=== PATIENT | male | born 1950 | race Caucasian/White ===

== ENCOUNTER 2021-04-14 15:32 | Emergency (ER) | payer MEDICARE ==
[2021-04-14 16:22] VITALS: O2SAT 96
--- NOTE | 2021-04-14 16:29 | ERPHSYRPT ---
- History of Present Illness Time Seen by Provider: 04/14/21 15:45 Source: patient Exam Limitations: no limitations Patient Subjective Stated Complaint: UTI-Fall Triage Nursing Assessment: Patient brought into ED via EMS and transferred and walked to bed per self. Mirtan A+O x3. Patient's skin pink, warm and dry. Patient states he currently is being treated for a UTI with Bactrim and has had 5 doses. Patient states today he got up from the couch and fell and was unable to get up. Patient states he was uninjuired. Patient is concerned with why he is so weak and wants to be checked out. Patient denies any urinary symptoms at this time. Physician History: Patient is a 70-year-old male presents to our ED via EMS for evaluation of a fall. Patient was getting off of his couch when he lost his balance and fell. Patient could not get off the floor. Patient was on the floor for a few minutes. Patient crawled to a phone and called her sister. His sister came to the house and could not get him off the floor. They called 911. Patient is currently being treated for urinary tract infection. Patient is on Bactrim. Patient became concerned because he wants to be sure that there is no underlying medical problem causing his fall. Patient lives alone and wants to make sure things are okay per patient. Patient was ambulatory from his house to the ambulance prior to arrival. He currently feels well. Patient states "I just lost my balance". No LOC. No BHT. No neck pain. Cervical spine cleared clinically. Patient denies any musculoskeletal pain. The fall was not associated with any chest pain or shortness of breath. No numbness tingling or weakness. Patient feels fine at this time. He voices no other complaints or concerns at this time. Patient states he has no urinary symptomology. Timing/Duration: today Severity: mild Modifying Factors: Improves With: nothing Associated Symptoms: denies symptoms Allergies/Adverse Reactions: benzoin Allergy (Verified 04/14/21 15:35) Hx Influenza Vaccination/Date Given: No Hx Pneumococcal Vaccination/Date Given: Yes Immunizations Up to Date: Yes Travel Risk - International Travel Have you traveled outside of the country in past 3 weeks: No - Coronavirus Screening Are you exhibiting any of the following symptoms?: No Close contact with a COVID-19 positive Pt in past 14-21 Days: No - Vaccine Status Have you recieved a Covid-19 vaccination: Yes Clinical Review Nurse: Moderna - Vaccination Dates Date of 2cond Vaccination (if applicable): 07/29/2020 Comment: Booster March 18 2021 - Review of Systems Constitutional: No Symptoms, No Fever, No Chills Eyes: No Symptoms Ears, Nose, & Throat: No Symptoms Respiratory: No Symptoms, No Cough, No Dyspnea Cardiac: No Symptoms, No Chest Pain, No Edema, No Syncope Abdominal/Gastrointestinal: No Symptoms, No Abdominal Pain, No Nausea, No Vomiting, No Diarrhea Genitourinary Symptoms: No Symptoms, No Dysuria Musculoskeletal: No Symptoms, No Back Pain, No Neck Pain Skin: No Symptoms, No Rash Neurological: No Symptoms, No Dizziness, No Focal Weakness, No Sensory Changes Psychological: No Symptoms Endocrine: No Symptoms Hematologic/Lymphatic: No Symptoms Immunological/Allergic: No Symptoms All Other Systems: Reviewed and Negative - Past Medical History Pertinent Past Medical History: Yes Neurological History: No Pertinent History ENT History: No Pertinent History Cardiac History: Hypertension Respiratory History: Sleep Apnea Endocrine Medical History: Diabetes Type II Musculoskeletal History: No Pertinent History GI Medical History: No Pertinent History History: No Pertinent History Psycho-Social History: No Pertinent History Male Reproductive Disorders: No Pertinent History - Past Surgical History Past Surgical History: Yes Neuro Surgical History: No Pertinent History Cardiac: No Pertinent History Respiratory: No Pertinent History Gastrointestinal: No Pertinent History Genitourinary: No Pertinent History Musculoskeletal: Orthopedic Surgery Male Surgical History: No Pertinent History Other Surgical History: rotator cuff left shoulder - Social History Smoking Status: Never smoker Exposure to second hand smoke: No Drug Use: none Patient Lives Alone: Yes - Nursing Vital Signs Nursing Vital Signs: Initial Vital Signs Temperature 98.1 F 04/14/21 15:39 Pulse Rate 79 04/14/21 15:39 Respiratory Rate 18 04/14/21 15:39 Blood Pressure 114/67 04/14/21 15:39 O2 Sat by Pulse Oximetry 98 04/14/21 15:39 Pain Scale Pain Intensity 0 - Physical Exam General Appearance: no apparent distress, alert Eye Exam: PERRL/EOMI, eyes nml inspection Ears, Nose, Throat Exam: normal ENT inspection, TMs normal, pharynx normal, moist mucous membranes Neck Exam: normal inspection, non-tender, supple, full range of motion Respiratory Exam: normal breath sounds, lungs clear, airway intact, No respiratory distress Cardiovascular Exam: regular rate/rhythm, normal heart sounds, normal peripheral pulses Gastrointestinal/Abdomen Exam: soft, normal bowel sounds, No tenderness, No mass Back Exam: normal inspection, normal range of motion, No CVA tenderness, No vert ebral tenderness Extremity Exam: normal inspection, normal range of motion, pelvis stable Neurologic Exam: alert, oriented x 3, cooperative, normal mood/affect, nml cerebellar function, nml station & gait, sensation nml, No motor deficits Skin Exam: normal color, warm, dry, No rash Lymphatic Exam: No adenopathy SpO2 Interpretation: normal SpO2: 96 O2 Delivery: Room Air - Course Nursing assessment & vital signs reviewed: Yes Ordered Tests: Active Orders 24 hr Category Date Time Status Nuclear Medicine Technician STAT Care 04/14/21 16:12 Active IV Insertion STAT Care 04/14/21 16:11 Active Pulse Oximetry (ED) STAT Care 04/14/21 16:11 Active CBC W DIFF Stat Lab 04/14/21 16:48 Completed CMP Stat Lab 04/14/21 16:48 Completed TROPONIN Q3H Lab 04/14/21 16:48 Received TROPONIN Q3H Lab 04/14/21 19:15 Ordered TROPONIN Q3H Lab 04/14/21 22:15 Ordered TROPONIN Q3H Lab 04/15/21 01:15 Ordered TROPONIN Q3H Lab 04/15/21 04:15 Ordered UA W/RFX UR CULTURE Stat Lab 04/14/21 16:46 Completed Lab/Rad Data: Laboratory Result Diagrams 04/14/21 16:48 04/14/21 16:48 Laboratory Results 04/14/21 04/14/21 04/14/21 Range/Units 16:48 16:48 16:46 WBC 7.1 (4.0-10.5) K/mm3 RBC 4.59 (4.1-5.6) M/mm3 Hgb 14.5 (12.5-18.0) gm/dl Hct 44.3 (42-50) % MCV 96.5 (78-100) fl MCH 31.6 (26-32) pg MCHC 32.7 (32-36) g/dl RDW 13.6 (11.5-14.0) % Plt Count 245 (150-450) K/mm3 MPV 10.4 (7.5-11.0) fl Gran % 88.5 H (36.0-66.0) % Eos # (Auto) 0 (0-0.5) Absolute Lymphs (auto) 0.52 L (1.0-4.6) Absolute Monos (auto) 0.28 (0.0-1.3) Lymphocytes % 7.3 L (24.0-44.0) % Monocytes % 3.9 (0.0-12.0) % Eosinophils % 0.0 (0.00-5.0) % Basophils % 0.3 (0.0-0.4) % Absolute Granulocytes 6.30 (1.4-6.9) Basophils # 0.02 (0-0.4) Sodium 136 L (137-145) mmol/L Potassium 3.8 (3.5-5.1) mmol/L Chloride 105 (98-107) mmol/L Carbon Dioxide 20 L (22-30) mmol/L Anion Gap 15.1 H (5-15) MEQ/L BUN 12 (9-20) mg/dL Creatinine 0.87 (0.66-1.25) mg/dL Estimated GFR > 60.0 ML/MIN Glucose 173 H (74-106) mg/dL Calcium 9.0 (8.4-10.2) mg/dL Total Bilirubin 0.70 (0.2-1.3) mg/dL AST 39 (17-59) U/L ALT 34 (0-50) U/L Alkaline Phosphatase 65 (38-126) U/L Serum Total Protein 6.5 (6.3-8.2) g/dL Albumin 3.8 (3.5-5.0) g/dL Urine Color YELLOW (YELLOW) Urine Appearance CLEAR (CLEAR) Urine pH 5.0 (5-6) Ur Specific [place] 1.032 (1.005-1.025) Urine Protein NEGATIVE (Negative) Urine Ketones TRACE (NEGATIVE) Urine Blood NEGATIVE (0-5) Prakash/ul Urine Nitrite NEGATIVE (NEGATIVE) Urine Bilirubin NEGATIVE (NEGATIVE) Urine Urobilinogen NEGATIVE (0-1) mg/dL Ur Leukocyte Esterase NEGATIVE (NEGATIVE) Urine WBC (Auto) NONE (0-5) /HPF Urine RBC (Auto) NONE (0-2) /HPF U Epithel Cells (Auto) NONE (FEW) /HPF Urine Bacteria (Auto) NONE (NEGATIVE) /HPF Urine Culture Reflexed NO (NO) Urine Glucose >=500 (NEGATIVE) mg/dL - Progress Progress: improved Progress Note: Patient reassessed. He feels well. Patient denies pain. Work-up essentially nonremarkable. UA suggestive that urinary tract infection is resolving with Bactrim. Patient states he is ready for discharge. He voices no other complaints or concerns at this time. No chest pain or shortness of breath. Patient ambulated in our ED. Gait was normal and steady. Neurologic status is within normal limits. No focal or lateralizing symptoms. Patient agrees to follow-up with his primary care doctor within 48 hours for evaluation. Portions of this note were created with voice recognition technology. There may be grammatical, spelling, punctuation or sound alike errors 04/14/21 17:12 Counseled pt/family regarding: lab results, diagnosis, need for follow-up, rad results - Departure Departure Disposition: Home Clinical Impression: Fall Condition: Stable Critical Care Time: No Referrals: VIRGINIE GONZALEZ [Primary Care Provider] - Follow up/PCP as directed Additional Instructions: Discharge/Care Plan FELY FARMER was seen on 04/14/21 in the Emergency Room. The patient was counseled regarding Diagnosis,Lab results, Imaging studies, need for follow up and when to return to the Emergency Room. Prescriptions given: Discharge Note I have spoken with the patient and/or caregivers. I have explained the patient's condition, diagnosis and treatment plan based on the information available to me at this time. I have answered the patient's and/or caregiver's questions and addressed any concerns. The patient and/or caregivers have as good understanding of the patient's diagnosis, condition and treatment plan as can be expected at this point. The vital signs have been stable. The patient's condition is stable and appropriate for discharge from the emergency department. The patient will pursue further outpatient evaluation with the primary care physician or other designated or consulting physician as outlined in the discharge instructions. The patient and/or caregivers are agreeable to this plan of care and follow-up instructions have been explained in detail. The patient and/or caregivers have received these instruction. The patient/and or caregivers are aware that any significant change in condition or worsening of symptoms should prompt an immediate return to this or the closest emergency department or call 911.
[2021-04-14 16:51] LABS: Basophil (Absolute #) 0.02 (0-0.4); Eosinophil (Absolute #) 0 (0-0.5); Hematocrit 44.3 % (42-50); Hemoglobin 14.5 gm/dl (12.5-18.0); Lymphocyte (Absolute #) 0.52 (1.0-4.6); Lymphocytes % 7.3 % (24.0-44.0); Mean Cell Volume 96.5 fl (78-100); Mean Corpuscular Hemoglobin 31.6 pg (26-32); Mean Corpuscular Hgb Concent. 32.7 g/dl (32-36); Mean Platelet Volume 10.4 fl (7.5-11.0); Monocyte (Absolute #) 0.28 (0.0-1.3); Monocytes % 3.9 % (0.0-12.0); Neutrophil % 88.5 % (36.0-66.0); Platelet Count 245 K/mm3 (150-450); Red Blood Count 4.59 M/mm3 (4.1-5.6); Red Cell Distribution Width 13.6 % (11.5-14.0); White Blood Count 7.1 K/mm3 (4.0-10.5)
[2021-04-14 16:54] LABS: Appearance CLEAR (CLEAR); Bilirubin NEGATIVE (NEGATIVE); Blood NEGATIVE Ery/ul (0-5); Glucose >=500 mg/dL (NEGATIVE); Ketones TRACE (NEGATIVE); Leukocyte Esterase NEGATIVE (NEGATIVE); Nitrite NEGATIVE (NEGATIVE); Protein,Urine Dip NEGATIVE (Negative); Specific Gravity 1.032 (1.005-1.025); Urobilinogen NEGATIVE mg/dL (0-1)
[2021-04-14 17:02] LABS: ALBUMIN 3.8 g/dL (3.5-5.0); ALKALINE PHOSPHATASE 65 U/L (38-126); ANION GAP 15.1 MEQ/L (5-15); BLOOD UREA NITROGEN 12 mg/dL (9-20); CHLORIDE 105 mmol/L (98-107); Carbon Dioxide 20 mmol/L (22-30); Creatinine 1 0.87 mg/dL (0.66-1.25); EST GLOMERULAR FILTRATION RATE > 60.0 ML/MIN; Glucose 173 mg/dL (74-106); Potassium 3.8 mmol/L (3.5-5.1); SGOT/AST 39 U/L (17-59); SGPT/ALT 34 U/L (0-50); SODIUM 136 mmol/L (137-145); Total Protein 6.5 g/dL (6.3-8.2)
[2021-04-14 17:16] VITALS: BP 108/71; PULSE 76
[2021-04-15 03:40] LABS: Slide Review 1 YES
== END 2021-04-14 17:19 | disposition home or self-care (01) ==
LOC: ED 15:32
DX: R53.1 Weakness (principal); W01.0XXA Fall on same level from slipping, tripping and stumbling without subsequent striking against object, initial encounter; Y92.009 Unspecified place in unspecified non-institutional (private) residence as the place of occurrence of the external cause; E11.9 Type 2 diabetes mellitus without complications
CPT/HCPCS: 36000; 36415; 80053; 81001; 84484; 85025; 93041; 94760; 99284

== ENCOUNTER 2022-08-23 13:15 | Emergency (ER) | payer MEDICARE ==
[2022-08-23] MEDS ORDERED: Zofran 4 MG/2 ML VIAL IV ONE (13:40)
[2022-08-23] MEDS ORDERED: MORPHINE SULFATE 4 MG INJ IV ONE (13:40)
[2022-08-23] MEDS ORDERED: Sodium Chloride 0.9% 500 ML 500 ML IV ONE ×2 (13:41→13:47)
--- NOTE | 2022-08-23 13:44 | ERPHSYRPT ---
- History of Present Illness Time Seen by Provider: 08/23/22 13:25 Historian: patient Exam Limitations: no limitations Physician History: 71 years old male with history of hypertension, hyperlipidemia, diabetes mellitus presented in the ER with chief complaint of right flank/right lower quadrant pain for the last 2 days, moderate intensity sharp in nature, aggravated with palpation/movement without associated nausea vomiting or diarrhea. Patient does have bowel movements yesterday. Does report some increased urinary frequency but no urgency or hesitancy. No fever or chills reported. Timing/Duration: day(s) (2), gradual onset, worse Activities at Onset: rest Quality: sharpness Abdominal Pain Onset Location: RUQ, RLQ Pain Radiation: no radiation Severity of Pain-Max: moderate Severity of Pain-Current: moderate Modifying Factors: Worsens With: movement, palpation Associated Symptoms: denies symptoms Previous symptoms: no prior history Allergies/Adverse Reactions: benzoin Allergy (Verified 08/23/22 13:50) Home Medications: Atorvastatin Calcium 40 mg PO DAILY 08/23/22 [History] Metformin HCl 500 mg [Glucophage 500 MG] 500 mg PO BIDWM 08/23/22 [History] Semaglutide [Ozempic] 1 mg SQ WEEKLY 08/23/22 [History] carvediloL [Carvedilol] 6.25 mg PO BID 08/23/22 [History] lisinopriL [Zestril] 5 mg PO DAILY 08/23/22 [History] Hx Influenza Vaccination/Date Given: No Hx Pneumococcal Vaccination/Date Given: Yes Travel Risk - Vaccine Status Have you recieved a Covid-19 vaccination: 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[employer] Line: Moderna - Vaccination Dates Date of 2cond Vaccination (if applicable): 07/29/2020 Comment: Booster March 18 2021 - Review of Systems Constitutional: No Symptoms Ears, Nose, & Throat: No Symptoms Respiratory: No Symptoms Cardiac: No Symptoms Abdominal/Gastrointestinal: Abdominal Pain Genitourinary Symptoms: No Symptoms Musculoskeletal: No Symptoms Skin: No Symptoms Neurological: No Symptoms Endocrine: No Symptoms Hematologic/Lymphatic: No Symptoms Immunological/Allergic: No Symptoms - Past Medical History Pertinent Past Medical History: Yes Neurological History: No Pertinent History ENT History: No Pertinent History Cardiac History: Hypertension Respiratory History: Sleep Apnea Endocrine Medical History: Diabetes Type II Musculoskeletal History: No Pertinent History GI Medical History: No Pertinent History History: No Pertinent History Psycho-Social History: No Pertinent History Male Reproductive Disorders: No Pertinent History - Past Surgical History Past Surgical History: Yes Neuro Surgical History: No Pertinent History Cardiac: No Pertinent History Respiratory: No Pertinent History Gastrointestinal: No Pertinent History Genitourinary: No Pertinent History Musculoskeletal: Orthopedic Surgery Male Surgical History: No Pertinent History Other Surgical History: rotator cuff left shoulder - Social History Smoking Status: Never smoker Exposure to second hand smoke: No Drug Use: none Patient Lives Alone: Yes - Nursing Vital Signs Nursing Vital Signs: Initial Vital Signs Temperature 98.4 F 08/23/22 13:31 Pulse Rate 93 H 08/23/22 13:31 Blood Pressure 155/78 08/23/22 13:31 O2 Sat by Pulse Oximetry 92 L 08/23/22 13:31 Pain Scale Pain Intensity 4 - Physical Exam General Appearance: no apparent distress, alert Eye Exam: PERRL/EOMI Ears, Nose, Throat Exam: normal ENT inspection Neck Exam: normal inspection, supple, full range of motion Respiratory Exam: normal breath sounds, lungs clear Cardiovascular Exam: regular rate/rhythm, normal heart sounds Gastrointestinal/Abdomen Exam: soft, tenderness (Right upper quadrant/flank/right lower quadrant tenderness with guarding with rebound tenderness.), guarding, rebound, No normal bowel sounds Back Exam: normal inspection, normal range of motion Neurologic Exam: alert, oriented x 3, cooperative Skin Exam: normal color SpO2 Interpretation: normal SpO2: 96 O2 Delivery: Room Air Ordered Tests: Active Orders 24 hr Category Date Time Status IV Insertion STAT Care 08/23/22 13:40 Active NPO (ED) STAT Care 08/23/22 13:40 Active ABDOMEN AND PELVIS W/0 CONTRAS [CT] Stat Exams 08/23/22 14:19 Completed CBC W DIFF Stat Lab 08/23/22 13:55 Completed CMP Stat Lab 08/23/22 13:55 Completed LIPASE Stat Lab 08/23/22 13:55 Completed UA W/RFX UR CULTURE Stat Lab 08/23/22 13:49 Completed Medication Summary Generic Name Dose Route Start Last Admin Trade Name Freq PRN Reason Stop Dose Admin Sodium Chloride 1,000 mls @ 125 mls/hr 08/23/22 15:45 08/23/22 15:46 Sodium Chloride 0.9% 1000 Ml IV 09/22/22 15:44 125 mls/hr .Q8H ANGELICA Administration Discontinued Medications Generic Name Dose Route Start Last Admin Trade Name Caren PRN Reason Stop Dose Admin Sodium Chloride 500 mls @ 500 mls/hr 08/23/22 13:41 08/23/22 14:54 Sodium Chloride 0.9% 500 Ml IV 08/23/22 14:40 Infused .Q1H ONE Infusion Sodium Chloride Confirm 08/23/22 13:47 Sodium Chloride 0.9% 500 Ml Administered 08/23/22 13:48 Dose 500 mls @ ud IV .STK-MED ONE Piperacillin Sod/Tazobactam 100 mls @ 200 mls/hr 08/23/22 15:26 08/23/22 15:42 Sod 3.375 gm/ Sodium Chloride IV 08/23/22 15:55 200 mls/hr STAT ONE Administration Sodium Chloride Confirm 08/23/22 15:38 Sodium Chloride 100ml Mini-Bag Plus Administered 08/23/22 15:39 Dose 100 mls @ ud IV .STK-MED ONE Sodium Chloride Confirm 08/23/22 15:43 Sodium Chloride 0.9% 1000 Ml Administered 08/23/22 15:44 Dose 1,000 mls @ ud .ROUTE .STK-MED ONE Morphine Sulfate 4 mg 08/23/22 13:40 08/23/22 13:48 Morphine Sulfate 4 Mg/Ml Injection IV 08/23/22 13:41 4 mg STAT ONE Administration Morphine Sulfate Confirm 08/23/22 13:47 Morphine Sulfate 4 Mg/Ml Injection Administered 08/23/22 13:48 Dose 4 mg .ROUTE .STK-MED ONE Ondansetron HCl 4 mg 08/23/22 13:40 08/23/22 13:49 Ondansetron Hcl 4 Mg/2 Ml Vial IV 08/23/22 13:41 4 mg STAT ONE Administration Ondansetron HCl Confirm 08/23/22 13:47 Ondansetron Hcl 4 Mg/2 Ml Vial Administered 08/23/22 13:48 Dose 4 mg .ROUTE .STK-MED ONE Piperacillin Sod/Tazobactam Sod Confirm 08/23/22 15:38 Piperacillin/Tazobactam Sodium 3.375 Gm Vial Administered 08/23/22 15:39 Dose 3.375 gm IV .STK-MED ONE Lab/Rad Data: Laboratory Result Diagrams 08/23/22 13:55 08/23/22 13:55 Laboratory Results 08/23/22 08/23/22 08/23/22 Range/Units 13:55 13:55 13:49 WBC 15.5 H (4.0-10.5) x10^3/uL RBC 4.14 (4.1-5.6) x10^6/uL Hgb 13.3 (12.5-18.0) g/dL Hct 39.6 L (42-50) % MCV 95.7 (78-100) fL MCH 32.1 H (26-32) pg MCHC 33.6 (32-36) g/dL RDW 12.5 (11.5-14.0) % Plt Count 315 (150-450) x10^3/uL MPV 10.7 (7.5-11.0) fL Gran % 81.4 H (36.0-66.0) % Immature Gran % (Auto) 0.3 (0.00-0.4) % Nucleat RBC Rel Count 0.0 (0.00-0.1) % Eos # (Auto) 0.01 (0-0.5) x10^3/uL Immature Gran # (Auto) 0.05 H (0.00-0.03) x10^3u/L Absolute Lymphs (auto) 1.70 (1.0-4.6) x10^3/uL Absolute Monos (auto) 1.09 (0.0-1.3) x10^3/uL Absolute Nucleated RBC 0.00 (0.00-0.01) x10^3u/L Lymphocytes % 11.0 L (24.0-44.0) % Monocytes % 7.0 (0.0-12.0) % Eosinophils % 0.1 (0.00-5.0) % Basophils % 0.2 (0.0-0.4) % Absolute Granulocytes 12.62 H (1.4-6.9) x10^3/uL Basophils # 0.03 (0-0.4) x10^3/uL Sodium 140 (137-145) mmol/L Potassium 3.4 L (3.5-5.1) mmol/L Chloride 103 (98-107) mmol/L Carbon Dioxide 27 (22-30) mmol/L Anion Gap 13.1 (5-15) MEQ/L BUN 6 L (9-20) mg/dL Creatinine 0.72 (0.66-1.25) mg/dL Estimated GFR > 60.0 ML/MIN Glucose 202 H (74-106) mg/dL Calcium 8.9 (8.4-10.2) mg/dL Total Bilirubin 1.20 (0.2-1.3) mg/dL AST 20 (17-59) U/L ALT 20 (0-50) U/L Alkaline Phosphatase 98 (38-126) U/L Serum Total Protein 7.4 (6.3-8.2) g/dL Albumin 3.9 (3.5-5.0) g/dL Lipase 76 (23-300) U/L Urine Color Dark Yellow (Yellow) Urine Appearance Clear (Clear) Urine pH 5.5 (4.6-8.0) Ur Specific [place] 1.025 (1.005-1.030) Urine Protein 100 A (Negative) Urine Glucose (UA) Negative (Negative) mg/dL Urine Ketones Trace A (Negative) Urine Blood Negative (Negative) Urine Nitrite Negative (Negative) Urine Bilirubin Small A (Negative) Urine Urobilinogen 1.0 A (0.2) mg/dL Ur Leukocyte Esterase Negative (Negative) U Hyaline Cast (Auto) 11-20 (0-2) /LPF Urine Microscopic RBC 0-2 (0-5) /HPF Urine Microscopic WBC 0-2 (0-5) /HPF Ur Epithelial Cells Rare (None Seen) /HPF Urine Bacteria None Seen (None Seen) /HPF Urine Culture Reflexed NO (NO) - Progress Progress Note: 08/23/22 15:36 71-year-old is evaluated for right-sided abdominal pain for the last 2 to 3 days with progressive worsening. Patient has diffuse tenderness on the right side with positive guarding and some rebound tenderness. Is given fluids and symptomatic treatment for pain, on reevaluation feeling much better. Work-up showed white count of 15.5, fairly unremarkable chemistries except for the elevated glucose and patient is diabetic. CT abdomen pelvis showed acute appendicitis with perforation and phlegmon formation. He is started on Zosyn. I have discussed with Dr. Conrad Clemons general surgeon on-call, recommended medical admission, have spoken with primary on-call Dr. Stanley, recommended patient probably needs to be transferred to a higher level of care. Patient's primary care Dr. Epperson is in [place] and I have spoken with him as well and he is agree full with taking care of patient in [facility]. I have called [facility] transfer line, discussed with Luther Li, reviewed history, work-up and patient is accepted for transfer. I have discussed lab work, plan of care and transfer with patient in detail who understand and agrees with it. Discussed with Dr.: Other Counseled pt/family regarding: lab results, diagnosis, need for follow-up, rad results Medical Desision Making - Discussion of managment Care discussed with:: specialist Reviewed:: Test results Agreed on:: Treatment plan - Diagnostic Testing Diagnostic test were ordered, analyzed, and reviewed by me: Yes Radiological Interpretation: Reviewed by me, Teleradiologist Report - Risk of complications The pt has a high risk of morbidity or mortality based on: Need for emergency major surgery, Decision regarding hospitilization or escalation of hosp level of care - Departure Departure Disposition: Transfer Clinical Impression: Acute appendicitis with appendiceal abscess Condition: Stable Critical Care Time: No Referrals: VIRGINIE EPPERSON [Primary Care Provider] - Follow up/PCP as directed
[2022-08-23] MEDS ORDERED: MORPHINE SULFATE 4 MG INJ ONE (13:47)
[2022-08-23] MEDS ORDERED: Zofran 4 MG/2 ML VIAL ONE (13:47)
[2022-08-23 14:05] LABS: Absolute Neutrophil Ct (ANC) 12.62 x10^3/uL (1.4-6.9); BASOPHIL % 0.2 % (0.0-0.4); Basophil (Absolute #) 0.03 x10^3/uL (0-0.4); Eosinophil % 0.1 % (0.00-5.0); Eosinophil (Absolute #) 0.01 x10^3/uL (0-0.5); Hematocrit 39.6 % (42-50); Hemoglobin 13.3 g/dL (12.5-18.0); IMMATURE GRAN # 0.05 x10^3u/L (0.00-0.03); IMMATURE GRAN % 0.3 % (0.00-0.4); Mean Cell Volume 95.7 fL (78-100); Mean Corpuscular Hemoglobin 32.1 pg (26-32); Mean Corpuscular Hgb Concent. 33.6 g/dL (32-36); Mean Platelet Volume 10.7 fL (7.5-11.0); Monocyte (Absolute #) 1.09 x10^3/uL (0.0-1.3); Neutrophil % 81.4 % (36.0-66.0); Platelet Count 315 x10^3/uL (150-450); Red Blood Count 4.14 x10^6/uL (4.1-5.6); Red Cell Distribution Width 12.5 % (11.5-14.0); White Blood Count 15.5 x10^3/uL (4.0-10.5)
[2022-08-23 14:13] LABS: Appearance Clear (Clear); Bacteria None Seen /HPF (None Seen); Bilirubin Small (Negative); Blood Negative (Negative); Epithelial Cells Rare /HPF (None Seen); Glucose, Urine Negative (Negative); Ketones Trace (Negative); Leukocyte Esterase Negative (Negative); Nitrite Negative (Negative); Ph 5.5 (4.6-8.0); Protein,Urine Dip 100 (Negative); RBC 0-2 /HPF (0-5); Specific Gravity 1.025 (1.005-1.030); WBC 0-2 /HPF (0-5)
[2022-08-23 14:24] LABS: ADD URINE CULTURE? NO (NO)
[2022-08-23 14:31] LABS: ALBUMIN 3.9 g/dL (3.5-5.0); ALKALINE PHOSPHATASE 98 U/L (38-126); ANION GAP 13.1 MEQ/L (5-15); BLOOD UREA NITROGEN 6 mg/dL (9-20); CHLORIDE 103 mmol/L (98-107); Calcium 8.9 mg/dL (8.4-10.2); Carbon Dioxide 27 mmol/L (22-30); Creatinine 1 0.72 mg/dL (0.66-1.25); EST GLOMERULAR FILTRATION RATE > 60.0 ML/MIN; Glucose 202 mg/dL (74-106); LIPASE 76 U/L (23-300); Potassium 3.4 mmol/L (3.5-5.1); SGOT/AST 20 U/L (17-59); SGPT/ALT 20 U/L (0-50); SODIUM 140 mmol/L (137-145); Total Protein 7.4 g/dL (6.3-8.2)
[2022-08-23] MEDS ORDERED: PIPERACILLIN/TAZOBACTAM 3.375 GM in Sodium Chloride 100ML MINI-BAG PLUS 100 ML IV ONE (15:26)
--- NOTE | 2022-08-23 15:28 | XRAY ---
CLINICAL HISTORY:Right-sided abdominal pain. COMPARISON:Prior CT from 05/31/2017. TECHNIQUES:Contiguous, multislice, nonenhanced CT scan of the abdomen and pelvis was performed in the axial plane with multiplanar reconstructions. Total DLP-1799.36; CTDI-32.02. FINDINGS: Liver is enlarged in size, measures about 21 cm in craniocaudal axis showing homogeneous attenuation with no obvious focal lesion within the limitations of noncontrast study. No intrahepatic biliary dilatation. Normal-sized portal vein and CBD. Gallbladder shows 18 mm calculus. Pancreas shows multiple calcifications at the head and body probably related to prior pancreatic insult. No pancreatic ductal dilatation or mass lesion seen. Normal-sized spleen showing homogeneous attenuation with no focal mass lesion. No adrenal mass. Both kidneys appear normal in size, shows normal contour and attenuation. Mild perinephric fat stranding seen around both kidneys. Tiny calculus seen in the midpole of right kidney. No hydronephrosis or mass lesion in either kidneys. Fat-containing umbilical hernia noted. Left posterolateral lumbar hernia is also noted. No ascites. No para-aortic lymphadenopathy. Atherosclerotic calcification of the abdominal aorta and iliac vessels. Appendix appear dilated measuring about 14 mm showing significant periappendiceal fat stranding and thickening of the lateroconal fascia with small extraluminal gas seen. [Series 2. image 69]. There is thickening of the wall of cecum and distal ileum at the ileocecal junction showing adjacent fat stranding. Inadequate bladder distension. Normal-sized prostate showing calcific foci within it. Spondylodegenerative changes in the visualized spine. No acute osseous abnormalities or suspicious bony lesion. Visualized sections through lung shows few fibrotic right lung 3-5 mm nodules coronary calcifications no pleural effusion bilaterally. IMPRESSION: CT appearances are suggestive of complicated perforated appendicitis showing significant periappendiceal fat stranding with phlegmon formation and reactive wall thickening of the cecum and distal ileal loop with adjacent colonic fat stranding. Cholelithiasis with no CT evidence of cholecystitis. Tiny right renal calculus. Fat-containing umbilical hernia seen. Left posterolateral lumbar hernia is also noted. Rest of the findings as detailed above. Dr Dubon was called with the findings at 324 EST. Electronically Signed by: Yudy Santoyo MD. (08/23/2022 14:25:08 WINDOWS SERVER ADMINISTRATOR)
[2022-08-23] MEDS ORDERED: Sodium Chloride 100ML MINI-BAG PLUS 100 ML IV ONE (15:38)
[2022-08-23] MEDS ORDERED: PIPERACILLIN/TAZOBACTAM IV ONE (15:38)
[2022-08-23] MEDS ORDERED: Sodium Chloride 0.9% 1000 ML 1,000 ML ONE (15:43)
[2022-08-23] MEDS ORDERED: Sodium Chloride 0.9% 1000 ML 1,000 ML IV SCH (15:45)
[2022-08-23 16:56] VITALS: BP 132/65; PULSE 86; O2SAT 98
== END 2022-08-23 17:01 | disposition short-term general hospital (02) ==
LOC: ED 13:15
DX: K35.33 Acute appendicitis with perforation, localized peritonitis, and gangrene, with abscess (principal); R10.31 Right lower quadrant pain; I10 Essential (primary) hypertension; E11.9 Type 2 diabetes mellitus without complications; Z79.84 Long term (current) use of oral hypoglycemic drugs; Z79.85 Long-term (current) use of injectable non-insulin antidiabetic drugs; Z79.899 Other long term (current) drug therapy
CPT/HCPCS: 36000; 36415; 74176; 80053; 81001; 83690; 85025; 96360; 96365; 96374; 96375; 99285; J2270; J2405